=== PATIENT | male | born 1975 ===

== ENCOUNTER 2017-07-19 21:06 | Emergency (ER) | payer SELFPAY ==
[2017-07-19 21:23] VITALS: BP 126/78; PULSE 71; RESP 20; TEMP 98.3; O2SAT 98
[2017-07-19] MEDS ORDERED: Piperacillin/Tazobact 3.375 GM in Sodium Chloride 0.9% 100 ML IV STA (22:28)
--- NOTE | 2017-07-19 23:24 | ED PDOC ---
Lower Extremity Pain/Injury Time Seen by Provider: 07/19/17 22:02 Chief Complaint (Nursing): Lower Extremity Problem/Injury Chief Complaint (Provider): Right Foot pain History Per: Patient History/Exam Limitations: no limitations Onset/Duration Of Symptoms: Days (2 days ago) Current Symptoms Are (Timing): Still Present Additional Complaint(s): 41 y/o male presents to the ED complaining of right foot pain, swelling , and erythema, onset of 36 hours ago. He felt mild discomfort to the right foot 2 days ago, but noticed last night that his right 4th toe became red and swollen. The symptoms then progressed to involve the dorsum of the foot and he experienced intense pain when trying to ambulate. He reports of chills, but denies fever, trauma, nausea, vomiting, or diarrhea. Past Medical History Reviewed: Historical Data, Nursing Documentation, Vital Signs Vital Signs: Last Vital Signs Temp 98.3 F 07/19/17 21:21 Pulse 71 07/19/17 21:21 Resp 20 07/19/17 21:21 BP 126/78 07/19/17 21:21 Pulse Ox 98 07/19/17 21:21 - Medical History PMH: No Chronic Diseases - Surgical History Surgical History: No Surg Hx - Family History Family History: States: Unknown Family Hx - Social History Current smoker - smoking cessation education provided: No Ex-Smoker (has not smoked in the last 12 months): No Alcohol: None Drugs: Denies - Home Medications Home Medications: Ambulatory Orders Medication Instructions Recorded Cephalexin [Keflex] 500 mg PO Q6 #40 capsule 07/20/17 Naproxen [Naprosyn] 500 mg PO Q12 #14 tab 07/20/17 Sulfamethoxazole/Trimethoprim 1 tab PO BID #20 tab 07/20/17 [Bactrim DS 800 mg-160 mg] - Allergies Allergies/Adverse Reactions: Allergies Allergy/AdvReac Type Severity Reaction Status Date / Time No Known Allergies Allergy Verified 07/19/17 21:21 Review of Systems ROS Statement: Except As Marked, All Systems Reviewed And Found Negative Constitutional: Negative for: Fever Musculoskeletal: Positive for: Foot Pain (right foot pain, swelling, erythema) Physical Exam - Reviewed Nursing Documentation Reviewed: Yes Vital Signs Reviewed: Yes - Physical Exam Appears: Positive for: Non-toxic, No Acute Distress Head Exam: Positive for: ATRAUMATIC Skin: Positive for: Normal Color, Warm Eye Exam: Positive for: Normal appearance Cardiovascular/Chest: Positive for: Regular Rate, Rhythm. Negative for: Murmur Respiratory: Positive for: Normal Breath Sounds. Negative for: Respiratory Distress Pulses-Dorsalis Pedis (L): 2+ Pulses-Dorsalis Pedis (R): 2+ Extremity: Positive for: Normal ROM, Pedal Edema, Other (right foot erythematous to dorsum, indurated, and warm to touch involves 5th, 4th, 3rd, 2nd digits ) - Laboratory Results Result Diagrams: 07/19/17 23:30 07/19/17 23:30 - ECG O2 Sat by Pulse Oximetry: 98 Medical Decision Making Medical Decision Making: Time: --22:28 Impression: --41 y/o willem with cellulitis of the right foot Plan: --Labs --Foot X-ray --Blood Culture --Lact acid --uric acid --Toradol 15mg IVP --Piperacillin 100ml Scribe Attestation: Documented by Low Jackson acting as a scribe for Mary Soto MD. Provider Attestation: All medical record entries made by the Scribe were at my direction and personally dictated by me. I have reviewed the chart and agree that the record accurately reflects my personal performance of the history, physical exam, medical decision making, and the department course for this patient. I have also personally directed, reviewed, and agree with the discharge instructions and disposition. Time: 1:20 Clinical Impression: Cellulitis of right foot Upon provider evaluation patient is medically stable, labs showed no clinically significant abnormality. The x-ray of the root presented no active disease and patient was diagnosed home with cellulitis of the right foot. Scribe Attestation: Documented by Andrea Ruiz, acting as a scribe for Dannie Cartagena MD Provider Scribe Attestation: All medical record entries made by the Scribe were at my direction and personally dictated by me. I have reviewed the chart and agree that the record accurately reflects my personal performance of the history, physical exam, medical decision making, and the department course for this patient. I have also personally directed, reviewed, and agree with the discharge instructions and disposition. Disposition - Clinical Impression Clinical Impression: Cellulitis of right foot - Disposition Referrals: [facility] [Outside] Podiatry Clinic [Outside] Disposition: Routine/Home Disposition Time: 01:20 Condition: STABLE Prescriptions: Cephalexin [Keflex] 500 mg PO Q6 #40 capsule Naproxen [Naprosyn] 500 mg PO Q12 #14 tab Sulfamethoxazole/Trimethoprim [Bactrim DS 800 mg-160 mg] 1 tab PO BID #20 tab Instructions: Cellulitis (ED) Forms: [facility] (Portuguese) Print Language: SLOVAK
[2017-07-19 23:54] LABS: BASO % 0.4 % (0.0-2.0); EOS # 0.4 K/uL (0.0-0.7); HEMOGLOBIN 14.7 g/dL (12.0-18.0); LYMPH # 2.8 K/uL (1.0-4.3); LYMPH % 25.8 % (20.0-40.0); MEAN CELL VOLUME 86.1 fl (80.0-94.0); MEAN CORPUSCULAR HEMOGLOBIN 27.9 pg (27.0-31.0); MEAN CORPUSCULAR HGB CONC 32.4 g/dL (33.0-37.0); MEAN PLATELET VOLUME 9.5 fl (7.2-11.7); MONO # 1.4 K/uL (0.0-0.8); MONO % 13.3 % (0.0-10.0); NEUT # 6.1 K/uL (1.8-7.0); NEUT % 56.5 % (50.0-75.0); NRBC % 0.1 % (0.0-0.0); RBC 5.28 Mil/uL (4.40-5.90); RED CELL DISTRIBUTION WIDTH 13.7 % (11.5-14.5); WHITE BLOOD COUNT 10.8 K/uL (4.8-10.8)
[2017-07-20 00:02] LABS: ALB/GLOB RATIO 1.2 (1.0-2.1); ALBUMIN 3.9 g/dL (3.5-5.0); ALT/SGPT 28 U/L (21-72); AST/SGOT 33 U/L (17-59); BLOOD UREA NITROGEN 15 mg/dl (9-20); CALCIUM 9.1 mg/dL (8.4-10.2); GFR AFRICAN-AMERICAN > 60; GFR NON-AFRICAN AMERICAN > 60; URIC ACID 5.5 mg/Dl (3.5-8.5)
[2017-07-20] MEDS ORDERED: Povidone Iodine Oint 10% Foilpak UD ONE (01:15)
--- NOTE | 2017-07-20 08:24 | CP.PCM.CON ---
History of Present Illness - History of Present Illness History of Present Illness: 41 year old male with no PMHx seen in ED complaining of pain in his right foot. Patient states that roughly two days ago he began experiencing increased pain, swelling and redness in his right fourth digit and over the course the the next 48 hours his symptoms all increased and spread proximally to the level of his midfoot The patient states that his pain became so bad that he was barely able to bear weight. Patient says that since he was given Toradol and a stat dose of Zosyn upon arrival to the ED his pain and swelling have both decreased but are still present. He now rates the pain as 7/10. Patient denies any recent trauma to the area. He states that he runs regularly and denies taking a medications, allergies and other medical issues. Denies smoking, heavy drinking or illicit drug use. Is AAO x3 and NAD at time of visit. Denies any other further pedal complaints at this time. Denies recent N/V/F/C/CP/SOB/D/ posterior calf pain when squeezed Review of Systems - Review of Systems Review of Systems: ROS as per HPI Past Patient History - Past Social History Alcohol: None Drugs: Denies - PSYCHIATRIC Hx Substance Use: No - SURGICAL HISTORY Hx Surgeries: No Meds Home Medications: Home Medication List Medication Instructions Recorded Confirmed Type Cephalexin [Keflex] 500 mg PO Q6 #40 capsule 07/20/17 Rx Naproxen [Naprosyn] 500 mg PO Q12 #14 tab 07/20/17 Rx Sulfamethoxazole/Trimethoprim 1 tab PO BID #20 tab 07/20/17 Rx [Bactrim DS 800 mg-160 mg] Allergies/Adverse Reactions: Allergies Allergy/AdvReac Type Severity Reaction Status Date / Time No Known Allergies Allergy Verified 07/19/17 21:21 Physical Exam - Constitutional Appears: Well, Non-toxic, In Acute Distress - Extremities Exam Additional comments: RLE focused exam: Vasc: DP/PT pulses fully palpable 2/4 b/l. CFT < 3 seconds to all digits. Skin temperature warm to warm from proximal to distal and not increased at distal forefoot. 1+ pitting edema noted to forefoot and fourth toe Neuro: Epicritic and protective sensation grossly intact b/l Derm: Interdigital maceration noted to fourth and third interspaces with breakdown of superficial skin. No malodor, no purulent drainage noted from either site. Minimally increased erythema noted to right fourth digit and forefoot. Otherwise, no open lesions, wounds, maceration, xerosis, abnormal pigmentation or abnormal growths noted b/l MSK: Severe POP to right fourth digit increased with ROM. POP extends proximally to forefoot, both dorsally and plantarly. Manual muscle testing deferred due to pain. Otherwise, no gross deformities noted - Neurological Exam Neurological exam: Alert, Oriented x3 - Psychiatric Exam Psychiatric exam: Normal Affect, Normal Mood Results - Vital Signs Recent Vital Signs: Last Vital Signs Temp 98.3 F 07/19/17 21:21 Pulse 71 07/19/17 21:21 Resp 20 07/19/17 21:21 BP 126/78 07/19/17 21:21 Pulse Ox 98 07/20/17 01:24 - Labs Result Diagrams: 07/19/17 23:30 07/19/17 23:30 Labs: Laboratory Results - last 24 hr 07/19/17 07/19/17 07/19/17 23:30 23:30 23:30 WBC 10.8 RBC 5.28 Hgb 14.7 Hct 45.5 MCV 86.1 MCH 27.9 MCHC 32.4 L RDW 13.7 Plt Count 150 MPV 9.5 Neut % (Auto) 56.5 Lymph % (Auto) 25.8 [place] % (Auto) 13.3 H Eos % (Auto) 4.0 Baso % (Auto) 0.4 Neut # 6.1 Lymph # 2.8 [place] # 1.4 H Eos # 0.4 Baso # 0.0 Sodium 141 Potassium 3.9 Chloride 101 Carbon Dioxide 31 H Anion Gap 13 BUN 15 Creatinine 1.0 Est GFR ( Amer) > 60 Est GFR (Non-Af Amer) > 60 Random Glucose 99 Lactic Acid 1.0 Uric Acid 5.5 Calcium 9.1 Total Bilirubin 0.4 AST 33 ALT 28 Alkaline Phosphatase 79 Total Protein 7.1 Albumin 3.9 Globulin 3.2 Albumin/Globulin Ratio 1.2 Assessment & Plan - Assessment and Plan (Free Text) Assessment: 41 year old male seen and evaluated in ED for painful, minimally infected right fourth digit and forefoot Plan: Patient seen and evaluated in ED Plan discussed with attending Dr. Guzman Patient afebrile, WBC 10.8 Uric acid 5.5 R foot xrays reviewed: Alignment of all joints WNL, no signs of cortical stepoff or stress fracture to any bone, increased soft tissue density noted diffusely to forefoot Third and fourth interdigital spaces painted with betadine and dressed with DSD Patient given Rx for Keflex 500 mg and Bactrim 400mg/80mg Patient advised to keep interspaces as clean and as dry as possible at all times , especially after he runs or takes a shower Patient demonstrated good understanding Patient is to follow up in Podiatry clinic next week - Date & Time Date: 07/20/17 Time: 02:00
--- NOTE | 2017-07-20 16:59 | RAD ---
PROCEDURE: Bilateral feet dated 07/19/2017. HISTORY: Right t foot pain COMPARISON: No prior study available for comparison. FINDINGS: Right foot findings: Study reveals mild diffuse circumferential soft tissue swelling most conspicuous at the level of the metacarpals right foot. Posttraumatic however other etiologies such is a cellulitis not excluded. Clinical correlation recommended. No evidence of acute displaced fracture nor dislocation. There tiny bony excrescences seen along the lateral margins of the distal aspect proximal phalanx right great toe which is of uncertain etiology though could represent a small exostosis or posttraumatic productive change. On the lateral aspect there is also a subtle bony protuberance which appears to arise from a small defect along the medial distal aspect of the proximal phalanx great toe which may also represent a developmental abnormality (as a similar focus seen on the left-side ) however old posttraumatic sequela. No evidence of acute displaced fracture nor dislocation. There is a tiny plantar surface calcaneal enthesophyte. Left foot findings: No evidence of acute displaced fracture nor dislocation. As mentioned above, there is a small irregularity along the distal medial aspect proximal phalanx left great toe which is nonspecific though could represent developmental abnormality however old posttraumatic sequela not excluded. Soft tissues unremarkable. There are no radiopaque foreign body seen. Tiny early plantar surface calcaneal enthesophyte also felt to be present. Impression: No evidence of acute displaced fracture nor dislocation. There is mild diffuse circumferential soft tissue swelling right foot most conspicuous at the level of the metacarpals. Rule out posttraumatic or post infectious etiology. Note this report was placed in [facility] review folder for followup
== END 2017-07-20 01:44 | disposition home or self-care (01) ==
LOC: H.ER 21:06
DX: L03.115 Cellulitis of right lower limb (principal)
CPT/HCPCS: 73630; 80053; 83605; 84550; 85025; 87040; 96360; 96374; 99284; J1885; J2543